=== PATIENT | male | born 1960 | race Caucasian/White ===

== ENCOUNTER 2019-03-07 13:22 | Observation (INO) | payer OTHER ==
[2019-03-07] MEDS ORDERED: FOLIC ACID 1 MG TAB PO STA (13:29)
[2019-03-07] MEDS ORDERED: LORazepam 2 MG/ML INJ IV STA (13:29)
[2019-03-07] MEDS ORDERED: MULTIVITAMINS, THERA 1 EACH TAB PO STA (13:29)
[2019-03-07] MEDS ORDERED: THIAMINE 100 MG/ML 2 ML VIAL IVPB STA (13:29)
[2019-03-07] MEDS ORDERED: SODIUM CHLORIDE 0.9% 1,000 ML IV STA (13:29)
[2019-03-07] MEDS ORDERED: LORazepam 2 MG/ML INJ IV PRN ×3 (13:29)
[2019-03-07] MEDS ORDERED: THIAMINE 100 MG/ML 2 ML VIAL IM STA (13:29)
[2019-03-07] MEDS ORDERED: IPRATROPIUM-ALBUTEROL 3 ML NEB INHALATION STA (13:31)
--- NOTE | 2019-03-07 13:34 | ED ---
Alcohol HPI - General Stated Complaint: ALCOHOL WITHDRAWAL Time Seen by Provider: 03/07/19 13:28 Source: RN notes reviewed, old records reviewed Limitations: altered mental status - History of Present Illness Initial Comments: This is a 50-year-old male the ER for evaluation. Patient currently going thr [facility] alcohol withdrawal history of alcohol abuse. Patient is accepted in transfer for evaluation of alcohol abuse, patient is also very depressed secondary to history of severe COPD with recent PTSD secondary to prolonged hospitalization and intubation. Patient currently going through DTs with shaan sawant see was score. Difficult historian history obtained from EMS and chart MD Complaint: alcohol intoxication, alcohol withdrawal, alcohol dependence Last Drink: unknown -: days(s) Previous Visits for Alcohol Intoxication?: Yes Recent Trauma: No Associated Symptoms: denies other symptoms Treatments Prior to Arrival: none Chronic Alcohol Use: Yes - Related Data Home Medications Medication Instructions Recorded Confirmed Acetaminophen [Tylenol Arthritis] 650 mg PO TID PRN 03/07/19 03/07/19 Aspirin EC [Ecotrin Low Dose] 81 mg PO DAILY 03/07/19 03/07/19 Atorvastatin [Lipitor] 40 mg PO HS 03/07/19 03/07/19 Famotidine [Pepcid] 40 mg PO HS 03/07/19 03/07/19 Ipratropium-Albuterol Nebulize 3 ml INHALATION RT-Q4H PRN 03/07/19 03/07/19 [Duoneb 0.5 mg-3 mg/3 ml Soln] Magnesium Oxide [Mag-Ox] 400 mg PO BID 03/07/19 03/07/19 Methocarbamol [Robaxin-750] 750 mg PO TID PRN 03/07/19 03/07/19 Metoprolol Tartrate [Lopressor] 50 mg PO BID 03/07/19 03/07/19 Naproxen 500 mg PO BID PRN 03/07/19 03/07/19 Ondansetron HCl [Zofran] 4 mg PO Q8H PRN 03/07/19 03/07/19 Sertraline [Zoloft] 100 mg PO DAILY 03/07/19 03/07/19 Tiotropium 18 Mcg/Puff [Spiriva] 1 puff INHALATION RT-DAILY 03/07/19 03/07/19 risperiDONE [RisperDAL] 0.5 mg PO QAM 03/07/19 03/07/19 risperiDONE [RisperDAL] 1 mg PO HS 03/07/19 03/07/19 Allergies Allergy/AdvReac Type Severity Reaction Status Date / Time hydrochlorothiazide AdvReac Unknown Verified 03/07/19 13:59 [From Zestoretic] lisinopril [From Zestoretic] AdvReac Unknown Verified 03/07/19 13:59 Penicillins AdvReac SHORTNESS Verified 03/07/19 13:59 OF BREATH Sulfa (Sulfonamide AdvReac SHORTNESS Verified 03/07/19 13:59 Antibiotics) OF BREATH Review of Systems ROS Statement: Those systems with pertinent positive or pertinent negative responses have been documented in the HPI. ROS Other: All systems not noted in ROS Statement are negative. General Exam Limitations: altered mental status General appearance: alert, anxious, in distress Head exam: Present: atraumatic, normocephalic, normal inspection Eye exam: Present: normal appearance, PERRL, EOMI. Absent: scleral icterus, conjunctival injection, periorbital swelling ENT exam: Present: normal exam, mucous membranes moist Neck exam: Present: normal inspection. Absent: tenderness, meningismus, lymphadenopathy Respiratory exam: Present: normal lung sounds bilaterally. Absent: respiratory distress, wheezes, rales, rhonchi, stridor Cardiovascular Exam: Present: normal rhythm, tachycardia, normal heart sounds. Absent: systolic murmur, diastolic murmur, rubs, gallop, clicks GI/Abdominal exam: Present: soft, normal bowel sounds. Absent: distended, tenderness, guarding, rebound, rigid Extremities exam: Present: normal inspection, full ROM, normal capillary refill. Absent: tenderness, pedal edema, joint swelling, calf tenderness Back exam: Present: normal inspection Neurological exam: Present: alert, oriented X3, CN II-XII intact Psychiatric exam: Present: normal affect, normal mood Skin exam: Present: warm, dry, intact, normal color. Absent: rash Course Vital Signs 03/07/19 03/07/19 03/07/19 13:37 13:40 13:46 Temperature 98.2 F Pulse Rate 101 H 99 92 Respiratory 20 20 18 Rate Blood Pressure 149/112 O2 Sat by Pulse 99 99 Oximetry 03/07/19 03/07/19 03/07/19 13:50 13:58 14:00 Temperature Pulse Rate 101 H 89 95 Respiratory 20 20 Rate Blood Pressure 149/112 164/116 O2 Sat by Pulse 98 100 Oximetry 03/07/19 03/07/19 03/07/19 14:09 14:30 15:00 Temperature Pulse Rate 91 91 91 Respiratory 20 18 Rate Blood Pressure 172/99 158/91 O2 Sat by Pulse 99 98 Oximetry 03/07/19 15:10 Temperature Pulse Rate 94 Respiratory Rate Blood Pressure 154/94 O2 Sat by Pulse Oximetry - Reevaluation(s) Reevaluation #1: 03/07/19 15:32 Medical record and transfer paperwork is reviewed Reevaluation #2: 03/07/19 15:32 Patient symptoms improving with benzodiazepines Medical Decision Making - Medical Decision Making 58 male the admitted for acute alcohol withdrawal impending DTs and suicidal thoughts. - Lab Data Result diagrams: 03/07/19 13:46 03/07/19 13:46 Lab Results 03/07/19 03/07/19 03/07/19 Range/Units 13:46 13:46 13:46 WBC 7.8 (3.8-10.6) k/uL RBC 4.33 (4.30-5.90) m/uL Hgb 11.7 L (13.0-17.5) gm/dL Hct 35.5 L (39.0-53.0) % MCV 82.0 (80.0-100.0) fL MCH 27.0 (25.0-35.0) pg MCHC 33.0 (31.0-37.0) g/dL RDW 16.0 H (11.5-15.5) % Plt Count 337 (150-450) k/uL Neutrophils % 72 % Lymphocytes % 19 % Monocytes % 5 % Eosinophils % 2 % Basophils % 1 % Neutrophils # 5.6 (1.3-7.7) k/uL Lymphocytes # 1.5 (1.0-4.8) k/uL Monocytes # 0.4 (0-1.0) k/uL Eosinophils # 0.2 (0-0.7) k/uL Basophils # 0.1 (0-0.2) k/uL PT 10.9 (9.0-12.0) sec INR 1.0 (<1.2) Sodium 137 (137-145) mmol/L Potassium 4.2 (3.5-5.1) mmol/L Chloride 103 (98-107) mmol/L Carbon Dioxide 24 (22-30) mmol/L Anion Gap 10 mmol/L BUN 9 (9-20) mg/dL Creatinine 0.60 L (0.66-1.25) mg/dL Est GFR (CKD-EPI)AfAm >90 (>60 ml/min/1.73 sqM) Est GFR (CKD-EPI)NonAf >90 (>60 ml/min/1.73 sqM) Glucose 104 H (74-99) mg/dL Calcium 9.3 (8.4-10.2) mg/dL Phosphorus 3.5 (2.5-4.5) mg/dL Magnesium 1.6 (1.6-2.3) mg/dL Total Bilirubin 0.6 (0.2-1.3) mg/dL AST 24 (17-59) U/L ALT 18 L (21-72) U/L Alkaline Phosphatase 135 H (38-126) U/L Creatine Kinase 41 L (55-170) U/L Total Protein 6.8 (6.3-8.2) g/dL Albumin 3.9 (3.5-5.0) g/dL Lipase 181 (23-300) U/L Salicylates <1.0 mg/dL Acetaminophen <10.0 ug/mL Serum Alcohol <10 mg/dL Disposition Clinical Impression: Alcohol withdrawal delirium, Alcohol withdrawal syndrome Disposition: ADMITTED IP TO THIS HOSP Condition: Serious Is patient prescribed a controlled substance at d/c from ED?: No Referrals: Evi Andre MD [Primary Care Provider] - 1-2 days
[2019-03-07 14:02] LABS: Basophils # (A) 0.1 k/uL (0-0.2); Basophils % (A) 1 %; Eosinophils # (A) 0.2 k/uL (0-0.7); Eosinophils % (A) 2 %; HCT 35.5 % (39.0-53.0); HGB 11.7 gm/dL (13.0-17.5); Lymphocytes # (A) 1.5 k/uL (1.0-4.8); Lymphocytes % (A) 19 %; Mean Platelet Volume 6.4; Monocytes # (A) 0.4 k/uL (0-1.0); Monocytes % (A) 5 %; Neutrophils # (A) 5.6 k/uL (1.3-7.7); Neutrophils % (A) 72 %; Platelet Count 337 k/uL (150-450); RBC 4.33 m/uL (4.30-5.90); WBC 7.8 k/uL (3.8-10.6)
[2019-03-07 14:12] LABS: ALT 18 U/L (21-72); AST 24 U/L (17-59); Acetaminophen <10.0 ug/mL; African American GFR (CKD) >90 (>60 ml/min/1.73 sqM); Albumin 3.9 g/dL (3.5-5.0); Alcohol <10 mg/dL; Alkaline Phosphatase 135 U/L (38-126); Anion Gap 10 mmol/L; Blood Urea Nitrogen 9 mg/dL (9-20); Calcium 9.3 mg/dL (8.4-10.2); Carbon Dioxide 24 mmol/L (22-30); Chloride 103 mmol/L (98-107); Creatine Kinase 41 U/L (55-170); Glucose 104 mg/dL (74-99); Lipase 181 U/L (23-300); Magnesium 1.6 mg/dL (1.6-2.3); Phosphorus 3.5 mg/dL (2.5-4.5); Potassium 4.2 mmol/L (3.5-5.1); Prothrombin Time 10.9 sec (9.0-12.0); Salicylate <1.0 mg/dL; Sodium 137 mmol/L (137-145); Total Bilirubin 0.6 mg/dL (0.2-1.3); Total Protein 6.8 g/dL (6.3-8.2)
[2019-03-07] MEDS ORDERED: THIAMINE 100 MG in SODIUM CHLORIDE 0.9% 50 ML IVPB STA (15:00)
[2019-03-07] MEDS: DEXTROSE 5%-0.45% NACL 1,000 ML IV SCH (15:45)
[2019-03-07 16:11] LABS: Appearance,Urine Clear (Clear); Bilirubin,Urine Negative (Negative); Blood,Urine Negative (Negative); Color,Urine Yellow; Glucose,Urine (UA) Negative (Negative); Ketones,Urine Negative (Negative); Leukocyte Esterase,Urine Small (Negative); Mucus,Urine Rare /hpf; Nitrite,Urine Negative (Negative); Protein,Urine Negative (Negative); RBC,Urine <1 /hpf (0-5); Urobilinogen,Urine <2.0 mg/dL (<2.0); WBC,Urine 1 /hpf (0-5)
[2019-03-07 16:21] LABS: Amphetamine Screen,Urine Not Detected (NotDetected); Barbiturate Screen,Urine Not Detected (NotDetected); Benzodiazepines Screen,Urine Detected (NotDetected); Cocaine Screen,Urine Not Detected (NotDetected); Methadone Screen, Urine Not Detected (NotDetected); Opiate Screen,Urine Not Detected (NotDetected); Oxycodone Screen, Urine Not Detected (NotDetected); Phencyclidine Screen,Urine Not Detected (NotDetected); Tricyclic Antidepressant,Urine Not Detected (NotDetected); Urn Cannabinoid Scrn Not Detected (NotDetected)
[2019-03-07] MEDS ORDERED: DIAZEPAM 5 MG/ML 2 ML INJ IVP STA (19:25)
[2019-03-07] MEDS: IPRATROPIUM-ALBUTEROL 3 ML NEB INHALATION PRN (21:08)
[2019-03-07] MEDS ORDERED: LORazepam 2 MG/ML INJ ONE (23:55)
[2019-03-08] MEDS ORDERED: LORazepam 2 MG/ML INJ ONE (02:39)
[2019-03-08] MEDS ORDERED: DEXTROSE 5%-0.45% NACL 1,000 ML BAG IV ONE (02:39)
[2019-03-08] MEDS: DEXTROSE 5%-0.45% NACL 1,000 ML IV SCH (05:08)
[2019-03-08] MEDS: IPRATROPIUM-ALBUTEROL 3 ML NEB INHALATION PRN ×3 (06:02→16:09)
[2019-03-08] MEDS: MULTIVITAMINS, THERA 1 EACH TAB PO SCH (08:49)
[2019-03-08] MEDS: ENOXAPARIN 40 MG/0.4 ML SYRINGE SQ SCH (08:49)
[2019-03-08] MEDS: THIAMINE 100 MG TAB PO SCH ×2 (08:49→19:21)
[2019-03-08] MEDS: LORazepam 2 MG/ML INJ IV PRN ×2 (09:56→15:13)
[2019-03-08] MEDS: ONDANSETRON 4 MG/2 ML VIAL IVP PRN (09:59)
--- NOTE | 2019-03-08 14:01 | P.CNPUL ---
History of Present Illness Consult date: 03/08/19 Requesting physician: Laith Woods Reason for consult: dyspnea Chief complaint: Alcohol withdrawal History of present illness: This is a pleasant 58-year-old gentleman follows with Dr. Nichols as his primary care physician. He has a history of chronic obstructive lung disease, CVA, myocardial infarction, GERD, osteoarthritis, multiple personality disorder, depressive disorder, hyperlipidemia, alcohol abuse. He states he drinks daily use weaning the year and that, and Pepsi. He does have severe emphysema with a FEV1 value 38% of predicted. He was seen in our office one post hospital visit in August [address] Andre. He was to be on Symbicort, Spiriva, albuterol. He was also counseled regarding smoking cessation. The patient states he has not smoked since September 2018. He was transferred here from an outside facility for alcohol withdrawal symptoms. He is seen today in [place] emergency department on the regular medical floor. He is currently sitting up at the bedside. Awake and alert in no acute distress. He does have dyspnea on exertion. He is requiring 4 L/m per nasal cannula to maintain O2 saturations in the 90s. He's been afebrile. Hypertensive. White count 7.8. Hemoglobin 11.7. Creatinine 0.60. Drug screen positive for benzodiazepines. Serum alcohol less than 10. He has been initiated on the CIWA protocol. Review of Systems REVIEW OF SYSTEMS: CONSTITUTIONAL: Denies any recent significant weight loss or weight gain. EYES: Denies change in vision. EARS, NOSE, MOUTH, THROAT: Denies headaches, denies sore throat. CARDIOVASCULAR: Denies chest pain, palpitations or syncopal episodes. RESPIRATORY: Positive for shortness of breath, cough, congestion or hemoptysis. GASTROINTESTINAL: Denies change in appetite, denies abdominal pain GENITOURINARY: Denies hematuria, denies infections. MUSKULOSKELETAL: Denies pain, denies swelling. INTEGUMENTARY: Denies rash, denies eczema. NEUROLOGICAL: Denies recent memory loss, no recent seizure activity. PSYCHIATRIC: Positive for anxiety, positive for depression. HEMATOLOGIC/LYMPHATIC: Denies anemia, denies enlarged lymph nodes. Past Medical History Past Medical History: Asthma, COPD, Hypertension History of Any Multi-Drug Resistant Organisms: None Reported Additional Past Surgical History / Comment(s): trach- removed feed tube-removed Past Anesthesia/Blood Transfusion Reactions: No Reported Reaction Past Psychological History: Bipolar, Depression Smoking Status: Former smoker Medications and Allergies Home Medications Medication Instructions Recorded Confirmed Type Acetaminophen [Tylenol Arthritis] 650 mg PO TID PRN 03/07/19 03/07/19 History Aspirin EC [Ecotrin Low Dose] 81 mg PO DAILY 03/07/19 03/07/19 History Atorvastatin [Lipitor] 40 mg PO HS 03/07/19 03/07/19 History Famotidine [Pepcid] 40 mg PO HS 03/07/19 03/07/19 History Ipratropium-Albuterol Nebulize 3 ml INHALATION RT-Q4H PRN 03/07/19 03/07/19 History [Duoneb 0.5 mg-3 mg/3 ml Soln] Magnesium Oxide [Mag-Ox] 400 mg PO BID 03/07/19 03/07/19 History Methocarbamol [Robaxin-750] 750 mg PO TID PRN 03/07/19 03/07/19 History Metoprolol Tartrate [Lopressor] 50 mg PO BID 03/07/19 03/07/19 History Naproxen 500 mg PO BID PRN 03/07/19 03/07/19 History Ondansetron HCl [Zofran] 4 mg PO Q8H PRN 03/07/19 03/07/19 History Sertraline [Zoloft] 100 mg PO DAILY 03/07/19 03/07/19 History Tiotropium 18 Mcg/Puff [Spiriva] 1 puff INHALATION RT-DAILY 03/07/19 03/07/19 History risperiDONE [RisperDAL] 0.5 mg PO QAM 03/07/19 03/07/19 History risperiDONE [RisperDAL] 1 mg PO HS 03/07/19 03/07/19 History Allergies Allergy/AdvReac Type Severity Reaction Status Date / Time hydrochlorothiazide AdvReac Unknown Verified 03/07/19 13:59 [From Zestoretic] lisinopril [From Zestoretic] AdvReac Unknown Verified 03/07/19 13:59 Penicillins AdvReac SHORTNESS Verified 03/07/19 13:59 OF BREATH Sulfa (Sulfonamide AdvReac SHORTNESS Verified 03/07/19 13:59 Antibiotics) OF BREATH Physical Exam Vitals: Vital Signs Temp Pulse Pulse Resp BP BP Pulse Ox 03/08/19 12:42 100 03/08/19 12:30 100 03/08/19 07:10 98.4 F 99 16 186/115 96 03/08/19 06:11 104 H 03/08/19 06:02 100 03/07/19 22:46 97.7 F 58 L 18 187/104 03/07/19 21:37 98.2 F 03/07/19 21:16 114 H 16 03/07/19 21:08 112 H 16 03/07/19 18:57 114 H 20 97 03/07/19 18:00 116 H 20 140/92 97 03/07/19 17:49 122 H 20 140/92 99 03/07/19 17:40 120 H 20 173/109 98 03/07/19 16:32 100 20 169/108 99 03/07/19 16:00 98 172/95 99 03/07/19 15:54 98.5 F 84 22 172/95 100 03/07/19 15:21 101 H 154/94 03/07/19 15:10 94 154/94 03/07/19 15:00 91 18 158/91 98 03/07/19 14:30 91 20 172/99 99 03/07/19 14:09 91 03/07/19 14:00 95 20 164/116 100 03/07/19 13:58 89 03/07/19 13:50 101 H 20 149/112 98 03/07/19 13:46 98.2 F 92 18 99 Intake and Output 03/07/19 03/08/19 03/08/19 22:59 06:59 14:59 Intake Total 600 480 260 Output Total 600 175 Balance 0 480 85 Intake: Amount of Fluid Infused ( 600 ml) Intake, IV Titration 480 Amount Dextrose 5%-0.45% NaCl 1, 480 000 ml @ 80 mls/hr IV . [id number] Rx#:[id number] Oral 260 Output: Urine 600 175 Other: # Voids 3 1 GENERAL EXAM: Pleasant, cooperative 58-year-old gentleman. Disheveled. Alert, comfortable in no apparent distress. On 4 L nasal cannula. HEAD: Normocephalic. EYES: Normal reaction of pupils, equal size. NOSE: Clear with pink turbinates. THROAT: No erythema or exudates. NECK: No masses, no JVD. CHEST: No chest wall deformity. LUNGS: Equal air entry with bilateral end expiratory wheeze, diminished. CVS: S1 and S2 normal with no audible murmur, regular rhythm. ABDOMEN: No hepatosplenomegaly, normal bowel sounds, no guarding or rigidity. SPINE: No scoliosis or deformity SKIN: No rashes CENTRAL NERVOUS SYSTEM: No focal deficits, tone is normal in all 4 extremities. EXTREMITIES: There is no peripheral edema. No clubbing, no cyanosis. Peripheral pulses are intact. Results - Laboratory Findings CBC and BMP: 03/07/19 13:46 03/07/19 13:46 PT/INR, D-dimer PT 10.9 sec (9.0-12.0) 03/07/19 13:46 INR 1.0 (<1.2) 03/07/19 13:46 Abnormal lab findings: Abnormal Labs 03/07/19 03/07/19 03/07/19 13:46 13:46 15:54 Hgb 11.7 L Hct 35.5 L RDW 16.0 H Creatinine 0.60 L Glucose 104 H ALT 18 L Alkaline Phosphatase 135 H Creatine Kinase 41 L Ur Leukocyte Esterase Small H Urine Mucus Rare H U Benzodiazepines Scrn Detected H - Diagnostic Findings Chest x-ray: image reviewed (Chronic emphysematous changes without acute pulmonary process.) Assessment and Plan Assessment: Impression: #1 Alcohol withdrawal in a patient who states he drinks daily with beer and vodka and Pepsi. #2 Acute exacerbation of chronic obstructive pulmonary disease. #3 Chronic tobacco dependence of 40 years, quit in September 2018. #4 History of ventilatory dependent respiratory failure. #5 Personality disorder. #6 Myocardial infarction. #7 History of CVA. #8 History of depression. #9 Hyperlipidemia. #10 Hypertension. Plan: The patient was seen and evaluated by Dr. Daily. Chest x-ray and labs were reviewed. Continue DuoNeb inhalations, add Symbicort inhalations, oral prednisone. Continue the CIWA protocol. We will continue to follow and make further recommendations based on his clinical status. I, the cosigning physician, performed a history & physical examination of the patient. Lungs sounds with bilateral end expiratory wheeze, diminished. Maintaining good O2 saturations in the 90s on 4 L/m per nasal cannula. I discussed the assessment and plan of care with my nurse practitioner, Araseli Zhang. I attest to the above note as dictated by her. Time with Patient: Greater than 30
[2019-03-08] MEDS ORDERED: ACETAMINOPHEN TAB 325 MG TAB PO PRN (15:26)
[2019-03-08] MEDS ORDERED: METHOCARBAMOL 750 MG TAB PO PRN (15:26)
[2019-03-08] MEDS ORDERED: NAPROXEN 250 MG TAB PO PRN (15:26)
[2019-03-08] MEDS ORDERED: TEMAZEPAM 15 MG CAP PO PRN (15:29)
[2019-03-08] MEDS ORDERED: HYDROcodone/APAP 5-325MG 1 EACH TAB PO PRN (15:29)
[2019-03-08] MEDS: IPRATROPIUM-ALBUTEROL 3 ML NEB INHALATION SCH ×2 (16:08→20:48)
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
--- NOTE | 2019-03-08 16:29 | HP ---
HISTORY AND PHYSICAL CHIEF COMPLAINT: Alcohol withdrawal. HISTORY OF PRESENT ILLNESS: This 58-year-old gentleman with a past medical history of asthma, COPD, hypertension, history of bipolar, depression, being followed by Dr. Andre in the outpatient setting, also had significant ETOH intake. The patient apparently stopped alcohol and is going through alcohol withdrawal. The patient was admitted for further evaluation and treatment. There is no history of any fever, rigor or chills. No history of headache, loss of consciousness, seizures. The basic labs showed no evidence of any liver failure at this time. The patient also had some suicidal ideations PAST MEDICAL HISTORY: 1. History of asthma. 2. COPD. 3. Hypertension. 4. Bipolar. 5. ETOH. 6. Depression. HOME MEDICATIONS: 1. Risperdal 1 mg at bedtime. 2. Zofran 4 mg p.r.n. 3. Naprosyn 500 mg b.i.d. p.r.n. 4. Robaxin 750 mg p.o. t.i.d. p.r.n. 5. DuoNeb q.4 p.r.n. 6. Pepcid 40 mg at bedtime. 7. Lipitor 40 mg at bedtime. 8. Tylenol Arthritis 650 t.i.d. p.r.n. 9. Spiriva 1 puff daily. 10.Magnesium oxide 400 mg p.o. b.i.d. 11.Zoloft 100 mg daily. 12.Lopressor 50 mg p.o. b.i.d. 13.Ecotrin 81 mg p.o. daily. 14.Risperdal 0.5 mg each morning. ALLERGIES: 1. ZESTORETIC. 2. PENICILLIN. 3. SULFA. FAMILY HISTORY: No history of heart disease or strokes in the family. SOCIAL HISTORY: Previous history of smoking. History of alcohol, as mentioned. REVIEW OF SYSTEMS: ENT: No diminished hearing. No diminished vision. CARDIOVASCULAR SYSTEM: No angina, palpitations. RESPIRATORY SYSTEM: As mentioned earlier. GI: No nausea, vomiting. : No dysuria or retention. NERVOUS SYSTEM: No numbness, weakness. ALLERGY/IMMUNOLOGY: No asthma, hayfever. MUSCULOSKELETAL: As mentioned earlier. HEMATOLOGY/ONCOLOGY: No history of anemia. ENDOCRINE: No history of diabetes, hypothyroidism. CONSTITUTIONAL: As mentioned earlier. DERMATOLOGY: Negative. RHEUMATOLOGY: Negative. PSYCHIATRY: As mentioned earlier. PHYSICAL EXAMINATION: Patient alert and oriented x3. Pulse is 99, blood pressure 183/103, respirations 17, temperature 98.2, pulse ox 98% on 4 L. HEENT: Conjunctivae normal. Oral mucosa moist. NECK: No jugular venous distention. No carotid bruit. No lymph node enlargement. CARDIOVASCULAR SYSTEM: S1, S2 muffled. RESPIRATORY SYSTEM: Breath sounds diminished at the bases. Scattered rhonchi and crackles. ABDOMEN: Soft, non-tender. No mass palpable. LEGS: No edema. No swelling. NERVOUS SYSTEM: Higher functions as mentioned earlier. Moves all 4 limbs. No focal motor or sensory deficit. LYMPHATICS: No lymph node palpable in neck, axillae or groin. SKIN: No ulcer, rash, bleeding. JOINTS: No active deforming arthropathy. LABS: WBC 7.8, hemoglobin 11.7. AST, ALT noted. ASSESSMENT: 1. Acute alcohol withdrawal and early delirium tremens. 2. Hypertension. 3. Depression with possible suicidal ideations. 4. History of ethanol. 5. History of nicotine dependence. 6. History of asthma and chronic obstructive pulmonary disease. 7. History of bipolar, depression. 8. FULL CODE. RECOMMENDATIONS AND DISCUSSION: In this 58-year-old gentleman who presented with multiple complex medical issues, we will monitor the patient closely, continue the current management, continue symptomatic treatment, CIWA protocol. I would recommend bronchodilators. Resume the home medications. Closely follow with Dr. Daily and Dr. Andre. Guarded prognosis because of multiple complex medical issues. Further recommendations to follow. Home medications will be continued. See orders for further details. MMODL / IJN: [id number] /
[2019-03-08] MEDS: predniSONE 20 MG TAB PO SCH (19:22)
[2019-03-08] MEDS: ALPRAZolam 0.25 MG TAB PO PRN (19:58)
[2019-03-08] MEDS: METOPROLOL TARTRATE 50 MG TAB PO SCH (20:14)
[2019-03-08] MEDS: MAGNESIUM OXIDE 400 MG TAB PO SCH (20:14)
[2019-03-08] MEDS: SYMBICORT 160-4.5 MCG INHALER INHALATION SCH (20:48)
[2019-03-08] MEDS ORDERED: FAMOTIDINE 20 MG TAB PO SCH (21:00)
[2019-03-08] MEDS ORDERED: risperiDONE 1 MG TAB PO SCH (21:00)
[2019-03-08] MEDS ORDERED: ATORVASTATIN 40 MG TAB PO SCH (21:00)
[2019-03-09] MEDS: IPRATROPIUM-ALBUTEROL 3 ML NEB INHALATION PRN ×3 (00:43→11:43)
[2019-03-09] MEDS: ALPRAZolam 0.25 MG TAB PO PRN ×2 (00:48→11:50)
[2019-03-09] MEDS: DEXTROSE 5%-0.45% NACL 1,000 ML IV SCH ×3 (00:51→06:00)
[2019-03-09] MEDS: ONDANSETRON 4 MG/2 ML VIAL IVP PRN (06:00)
[2019-03-09 07:08] VITALS: BP 183/94; RESP 16; TEMP 98
[2019-03-09] MEDS ORDERED: PANTOPRAZOLE 40 MG TABLET PO SCH (07:30)
[2019-03-09] MEDS: ENOXAPARIN 40 MG/0.4 ML SYRINGE SQ SCH (07:58)
[2019-03-09] MEDS: predniSONE 20 MG TAB PO SCH (07:59)
[2019-03-09] MEDS: THIAMINE 100 MG TAB PO SCH (07:59)
[2019-03-09] MEDS: MULTIVITAMINS, THERA 1 EACH TAB PO SCH (07:59)
[2019-03-09] MEDS: MAGNESIUM OXIDE 400 MG TAB PO SCH (07:59)
[2019-03-09] MEDS: METOPROLOL TARTRATE 50 MG TAB PO SCH (07:59)
[2019-03-09] MEDS ORDERED: NON-FORMULARY DRUG (Tiotropium 18 Mcg/Puff 1 PUFF) INHALATION SCH (08:00)
[2019-03-09] MEDS: SYMBICORT 160-4.5 MCG INHALER INHALATION SCH (08:16)
[2019-03-09] MEDS ORDERED: ASPIRIN 81 MG PO SCH (09:00)
[2019-03-09] MEDS ORDERED: risperiDONE 0.5 MG TAB PO SCH (09:00)
[2019-03-09] MEDS ORDERED: SERTRALINE 100 MG TAB PO SCH (09:00)
[2019-03-09 09:07] LABS: Anisocytosis Slight; Basophils % (A) 1 %; Eosinophils % (A) 1 %; HCT 36.3 % (39.0-53.0); HGB 11.6 gm/dL (13.0-17.5); Lymphocytes # (A) 0.7 k/uL (1.0-4.8); Lymphocytes % (A) 16 %; MCH 26.9 pg (25.0-35.0); MCV 84.2 fL (80.0-100.0); Mean Platelet Volume 7.4; Monocytes # (A) 0.2 k/uL (0-1.0); Monocytes % (A) 5 %; Neutrophils # (A) 3.4 k/uL (1.3-7.7); Neutrophils % (A) 77 %; Platelet Count 298 k/uL (150-450); RBC 4.32 m/uL (4.30-5.90); RDW 16.4 % (11.5-15.5); WBC 4.4 k/uL (3.8-10.6)
[2019-03-09 09:22] LABS: African American GFR (CKD) >90 (>60 ml/min/1.73 sqM); Anion Gap 10 mmol/L; Blood Urea Nitrogen 5 mg/dL (9-20); Calcium 9.5 mg/dL (8.4-10.2); Carbon Dioxide 26 mmol/L (22-30); Chloride 101 mmol/L (98-107); Glucose 113 mg/dL (74-99); Potassium 4.4 mmol/L (3.5-5.1); Sodium 137 mmol/L (137-145)
[2019-03-09 11:53] VITALS: PULSE 76
--- NOTE | 2019-03-09 18:05 | PN ---
PROGRESS NOTE DATE OF SERVICE: 03/09/2019 This is a 58-year-old male whom we saw yesterday in consultation. Our impressions were that the patient had alcohol withdrawal syndrome. He was a heavy drinker of both beer, vodka and Pepsi. In addition, he has mild COPD exacerbation, chronic tobacco dependence, history of ventilatory-dependent respiratory failure, personality disorder, myocardial infarction, CVA, depression, hyperlipidemia and hypertension. Anyway, the patient seems to be doing much better today. He is sitting at the bedside. He tells us that he might be discharged home today. I am not sure if that is correct. He states that his breathing is much improved. He denies any cough, wheezing or phlegm production. He is still a bit short of breath with exertion. We counseled him about the importance of smoking cessation. PHYSICAL EXAMINATION: VITAL SIGNS: Current vital signs are reviewed. Temperature is 98 degrees, heart rate 76, respiratory rate 16, blood pressure 171/109 with mean of 129, and saturations on a couple of liters is 99%. On room air he is 96%. GENERAL: He appears in no acute distress. No oral lesions. HEENT: HEENT examination is unremarkable. There are no oral lesions. NECK: Supple. Full range of motion. No adenopathy, thyromegaly or neck vein distention. CARDIOVASCULAR: Cardiovascular examination reveals heart rate in the mid 60s. S1, S2 normal. No S3, S4 or murmur. LUNGS: Lungs reveal mostly clear breath sounds. A few scattered rhonchi. No wheezes or crackles. Breath sounds equal bilaterally. ABDOMEN: Soft. Bowel sounds are heard. EXTREMITIES: Extremities are intact. No cyanosis, clubbing or edema. SKIN: Without rash. NEUROLOGIC: Neurologic examination is brief but nonfocal. LABS: Reviewed. White count 4.4, hemoglobin 11.6, hematocrit 36.3, platelet count 298,000. Sodium, potassium, chloride and CO2 all normal. Anion gap is 10. BUN and creatinine were 5 and 0.52. The rest of the labs look good. Benzodiazepine screen was positive. No recent x-ray to report. ASSESSMENT: 1. Alcohol withdrawal syndrome in a patient who is a heavy drinker. 2. History of chronic obstructive pulmonary disease exacerbation, mild and improved. 3. Chronic tobacco dependence for more than 40 years. 4. History of ventilatory-dependent respiratory failure. 5. Personality disorder. 6. Myocardial infarction. 7. History of cerebrovascular accident. 8. History of depression. 9. Hyperlipidemia. 10.History of hypertension. PLAN: The patient is doing well. The patient is on appropriate medications. He is currently on DuoNeb inhalations, Symbicort and oral prednisone. We will continue the CIWA scale. No additional recommendations are made. Prognosis is guarded. He was counseled about the importance of smoking cessation and alcohol cessation. MMJEFFERYL / IJN: [id number] /
--- NOTE | 2019-03-09 22:23 | DS ---
DISCHARGE SUMMARY DATE OF SERVICE: 03/09/2019. FINAL DIAGNOSES: 1. Acute alcohol withdrawal and acute delirium tremens. 2. Hypertension. 3. Depression with possible suicidal ideations. 4. History of EtOH. 5. History of nicotine dependence. 6. History of asthma, chronic obstructive pulmonary disease. 7. History of bipolar depression. 8. FULL CODE. DISCHARGE DISPOSITION: The patient being discharged in stable condition with guarded prognosis. HISTORY OF PRESENT ILLNESS: This 58-year-old gentleman with a past medical history of multiple medical problems, admitted with acute alcohol withdrawal and possible delirium tremens, treated symptomatically. Psychiatry saw the patient, cleared the patient for discharge. The patient improved significantly. Recommended no alcohol at home. On exam, vital signs are stable. Cardiovascular S1, S2. Abdomen soft. Nervous system: No focal deficits. DISCHARGE ADVICE AND MEDICATIONS: 1. Diet is cardiac diet. 2. Activity limited until followup. 3. No ETOH at home. 4. Follow up with Dr. Andre in 2-3 days. 5. Follow up with [facility] or psychiatry as recommended. MEDICATIONS: 1. DuoNeb q.4 p.r.n. 2. Ecotrin 81 mg p.o. daily. 3. Lipitor 40 mg q.h.s. 4. Lopressor 50 mg p.o. b.i.d. 5. Magnesium oxide 400 mg p.o. b.i.d. 6. Naprosyn 500 mg b.i.d. p.r.n. 7. Pepcid 40 mg p.o. q.h.s. 8. Risperdal 0.5 mg p.o. q.a.m. and 1 mg q.h.s. 9. Robaxin 750 mg p.o. t.i.d. p.r.n. 10.Spiriva 1 puff daily. 11.Tylenol Arthritis 650 q t.i.d. p.r.n. 12.Zofran 4 mg q.8 p.r.n. 13.Zoloft 100 mg p.o. daily. 14.Folic acid 1 mg p.o. daily. 15.Medrol Dosepak. 16.Multivitamins. 17.Vitamin B1 100 mg p.o. daily. Once again, the patient will be discharged in stable condition with guarded prognosis. MMODL / IJN: [id number] /
== END 2019-03-09 15:00 ==
LOC: EC 13:22 → EEVIPCON 13:22 → 4SSUR 13:29 → INTOOBSV 13:29 → 4SSUR 03-08 04:24
PROVIDERS: ADMIT Hospitalist; ATTEND Hospitalist
DX: F10.231 Alcohol dependence with withdrawal delirium (principal); F10.229 Alcohol dependence with intoxication, unspecified; J43.9 Emphysema, unspecified; R45.851 Suicidal ideations; I10 Essential (primary) hypertension; F31.30 Bipolar disorder, current episode depressed, mild or moderate severity, unspecified; I25.2 Old myocardial infarction; F60.9 Personality disorder, unspecified; F44.81 Dissociative identity disorder; F43.10 Post-traumatic stress disorder, unspecified; E78.5 Hyperlipidemia, unspecified; K21.9 Gastro-esophageal reflux disease without esophagitis; M19.90 Unspecified osteoarthritis, unspecified site; F17.200 Nicotine dependence, unspecified, uncomplicated; Z86.73 Personal history of transient ischemic attack (TIA), and cerebral infarction without residual deficits; Z87.09 Personal history of other diseases of the respiratory system; Z79.899 Other long term (current) drug therapy; Z79.82 Long term (current) use of aspirin; Z79.1 Long term (current) use of non-steroidal anti-inflammatories (NSAID); Z88.0 Allergy status to penicillin; Z88.2 Allergy status to sulfonamides; Z88.8 Allergy status to other drugs, medicaments and biological substances
CPT/HCPCS: 96376 ×3; 96372 ×2; 96375 ×2; 96361; 96365; 99285; 36415; 94640 ×6; 94760; 97161; 97165; 80053; 80048; 82550; 83690; 83735; 84100; 85025 ×2; 85610; 81001; 80306; 83520; G0378 ×3; G0480 ×2; J2060 ×2; J3411; J3360; J2405 ×2; J1650 ×2; J7512 ×2; 80320; 80329